=== PATIENT | male | born 1960 | race African-American/Black ===

== ENCOUNTER 2022-12-13 21:45 | Inpatient (IN) | payer MEDICAID, OTHER ==
[~2022-12-13] VITALS: Ht 175.3 cm; Wt 80.8 kg
[~2022-12-13 21:45] MED LIST: METHOCARBAMOL
[2022-12-13] MEDS ORDERED: HYDRALAZINE 20MG/ML VIAL IV ONE (23:30)
[2022-12-13 23:45] LABS: BASOPHILS % 0.7 % (0.0-2.0); HEMATOCRIT. 42.8 % (42.0-52.0); HEMOGLOBIN. 14.4 g/dL (14.0-18.0); LYMPHOCYTES % 40.2 % (20.0-50.0); MEAN CORPUSCULAR HEMOGLOBIN 32.1 pg (28.0-32.0); MEAN CORPUSCULAR VOLUME 95.4 fL (80.0-94.0); MEAN PLATELET VOLUME 6.3 fl (7.4-10.4); MONOCYTES % 9.3 % (2.0-8.0); NEUTROPHILS % 47.8 % (40.0-76.0); PLATELET 353 x1000/uL (130-400); RED BLOOD CELL COUNT 4.49 mill/uL (4.7-6.1); RED CELL DISTRIBUTION WIDTH 14.8 % (11.6-14.6)
[2022-12-13 23:53] LABS: CHLORIDE 107 mEq/L (98-107)
[2022-12-14] MEDS ORDERED: HYDRALAZINE 20MG/ML VIAL IV ONE (00:45)
[2022-12-14] MEDS ORDERED: ACETAMINOPHEN 325MG TABLET PO NR (02:30)
[2022-12-14 09:00] VITALS: BP 142/62
[2022-12-14] MEDS ORDERED: AMLODIPINE 5MG TABLET PO SCH (09:00)
[2022-12-14] MEDS ORDERED: ONDANSETRON HCL 4MG/2ML INJ IV PRN (10:45)
[2022-12-14] MEDS: ACETAMINOPHEN 325MG TABLET PO PRN (11:01)
[2022-12-14] MEDS: ENOXAPARIN 40MG/0.4ML SYR SUBCUT SCH (11:01)
[2022-12-14 12:22] VITALS: BP 182/96
[2022-12-14 16:32] VITALS: BP 165/90
[2022-12-14 16:34] VITALS: BP 102/54
[2022-12-14 20:00] VITALS: BP 160/91
[2022-12-14] MEDS: ATORVASTATIN CALCIUM 40MG TABLET PO SCH (21:33)
[2022-12-15] VITALS: BP 179/93
[2022-12-15] MEDS: CLONIDINE 0.1MG TABLET PO PRN ×2 (00:11→21:32)
[2022-12-15] MEDS: ACETAMINOPHEN 325MG TABLET PO PRN (00:12)
[2022-12-15 04:00] VITALS: BP 136/75
[2022-12-15 08:00] VITALS: BP 135/77
[2022-12-15] MEDS: AMLODIPINE 10MG TABLET PO SCH (08:47)
[2022-12-15] MEDS: ASPIRIN 81MG TABLET PO SCH (08:48)
[2022-12-15] MEDS: ENOXAPARIN 40MG/0.4ML SYR SUBCUT SCH (10:58)
[2022-12-15 12:00] VITALS: BP 146/85
[2022-12-15 16:00] VITALS: BP 138/80
[2022-12-15 20:00] VITALS: BP 168/88
[2022-12-15] MEDS: ATORVASTATIN CALCIUM 40MG TABLET PO SCH (20:13)
[2022-12-16] VITALS: BP 134/67
[2022-12-16 04:00] VITALS: BP 139/84
[2022-12-16] MEDS ORDERED: SILVER NITRATE APPLICATOR STICK TOP NR (07:00)
[2022-12-16 07:53] VITALS: BP 140/80
[2022-12-16] MEDS: AMLODIPINE 10MG TABLET PO SCH (09:30)
[2022-12-16] MEDS: ASPIRIN 81MG TABLET PO SCH (09:30)
[2022-12-16 11:46] VITALS: BP 165/81
[2022-12-16] MEDS: ENOXAPARIN 40MG/0.4ML SYR SUBCUT SCH (12:05)
[2022-12-16] MEDS: CLONIDINE 0.1MG TABLET PO PRN (13:50)
== END 2022-12-16 15:00 | DRG 199 ==
LOC: ER 21:45 → 7WST 12-14 03:16 → EDBEDREQ 12-14 03:42 → EDBEDREQTM 12-14 03:42
PROVIDERS: ADMIT Internal Medicine; ATTEND Internal Medicine
DX: I16.0 Hypertensive urgency (principal); L97.319 Non-pressure chronic ulcer of right ankle with unspecified severity; I12.9 Hypertensive chronic kidney disease with stage 1 through stage 4 chronic kidney disease, or unspecified chronic kidney disease; E78.00 Pure hypercholesterolemia, unspecified; L98.0 Pyogenic granuloma; N18.9 Chronic kidney disease, unspecified; I73.9 Peripheral vascular disease, unspecified; Z90.81 Acquired absence of spleen
CPT/HCPCS: 36415; 70551; 71045; 80048; 85025; 93005; 97116; 97162; 99291; J0360; J1650